=== PATIENT | male | born 1995 | race Caucasian/White ===

== ENCOUNTER 2018-06-27 00:53 | Emergency (ER) | payer OTHER ==
[~2018-06-27] VITALS: Ht 182.9 cm; Wt 63.5 kg
[2018-06-27] MEDS ORDERED: IBUPROFEN 200200 M1 PO (01:21)
[2018-06-27 02:10] LABS: ABSOLUTE NEUTROPHILS 5.7 thou/uL (1.4-8.2); BASOPHILS 0.9 % (0.0-2.0); EOSINOPHILS 8.7 % (0.0-3.0); HEMOGLOBIN 14.3 gm/dL (14.0-18.0); LYMPHOCYTES 32.4 % (24.0-44.0); MCH 26.8 pg (26.0-34.0); MCHC 32.6 g/dL (28.0-37.0); MCV 82.1 fL (80.0-100.0); MONOCYTES 8.3 % (1.0-8.0); PLATELET COUNT 318 thou/uL (150-400); POLYS 49.7 % (36.0-66.0); RBC 5.36 mil/uL (4.50-6.00); RDW 13.6 % (10.5-14.5); WBC 11.5 thou/uL (4.0-11.0)
[2018-06-27 02:12] LABS: CALCIUM 9.1 mg/dL (8.5-10.1); CREATININE 0.9 mg/dL (0.7-1.3); POTASSIUM 3.8 mmol/L (3.5-5.1)
[2018-06-27] MEDS ORDERED: CARAFATE 1 GM TA1 G1 PO (02:17)
[2018-06-27] MEDS ORDERED: PEPCID40 MG PO (02:17)
[2018-06-27 02:25] LABS: ALBUMIN 4.3 g/dL (3.4-5.0); TOTAL BILIRUBIN 0.5 mg/dL (<0.1-1.0); TOTAL PROTEIN 6.9 g/dL (6.4-8.2)
[2018-06-27 03:14] VITALS: BP 114/69
--- NOTE | 2018-06-27 07:33 | EKG ---
[facility] [place] [address] ELECTROCARDIOGRAM REPORT Name: SHERRI SHINE Room #: [facility] DANITZA Araujo#: [id number] ������������������ Admission: 06/27/18 ������������������ Attend Phys: Discharge: 06/27/18 ������������������ Date of : [birth year] Report #: [id number] ����������������������������������������������������������������� [id number] THIS REPORT FOR: //name// [facility] ED Test Date: 2018-06-27 Test Time: 01:49:34 Pat Name: SHERRI FÁTIMA Department: Room: Gender: M Programming Engineer: ... : 1995 Requested By: Matt Peace Order Number: [id number] MD: Kunal Guy Measurements Intervals [place] Rate: 65 P: 31 VT: 129 QRS: -33 QRSD: 89 T: -2 QT: 389 QTc: 405 Interpretive Statements Sinus rhythm ST elev, probable normal early repol pattern Baseline wander in lead(s) V3 No previous ECG available for comparison Electronically Signed On 06-27-2018 7:33:29 CLIMBING GUIDE by Kunal Guy [email or web address] ��������������������������������������������� <ELECTRONICALLY SIGNED> ���������������������������������������� By: Kunal Guy MD, [facility] ��������������������������������������������� 06/27/18 0733 [id number] Kunal Guy MD, FACC /EPI
== END 2018-06-27 03:00 | disposition home or self-care (01) ==
LOC: ER 00:53
PROVIDERS: Emergency Medicine
DX: R10.13 Epigastric pain (principal); R51 Headache